=== PATIENT | female | born 1965 | race African-American/Black ===

== ENCOUNTER 2022-03-31 15:46 | Emergency (ER) | payer MEDICAID ==
[~2022-03-31] VITALS: Ht 167.6 cm; Wt 82.0 kg
[2022-03-31 17:40] LABS: BASOPHILS % 1.1 % (0.0-2.0); HEMATOCRIT. 38.5 % (36.0-48.0); HEMOGLOBIN. 12.8 g/dL (12.0-16.0); LYMPHOCYTES % 45.2 % (20.0-50.0); MEAN CORPUSCULAR HEMOGLOBIN 26.6 pg (28.0-32.0); MEAN CORPUSCULAR VOLUME 80.2 fL (81.0-99.0); MONOCYTES % 8.4 % (2.0-8.0); NEUTROPHILS % 41.3 % (40.0-76.0); PLATELET 324 x1000/uL (130-400); RED CELL DISTRIBUTION WIDTH 14.8 % (11.6-14.6)
[2022-03-31 17:48] LABS: PROTHROMBIN TIME 11.1 sec (9.6-11.0)
[2022-03-31 18:13] LABS: CHLORIDE 103 mEq/L (98-107)
[2022-03-31 19:07] VITALS: BP 142/88
== END 2022-03-31 19:10 | disposition home or self-care (01) ==
LOC: ER 15:46
DX: R07.9 Chest pain, unspecified (principal); E78.00 Pure hypercholesterolemia, unspecified; F41.9 Anxiety disorder, unspecified
CPT/HCPCS: 36415; 71045; 80053; 83880; 84484; 85025; 93005; 99285